=== PATIENT | female | born 1970 | race Caucasian/White ===

== ENCOUNTER → 2016-08-11 | Day surgery (SDC) | payer OTHER ==
[~2016-08-11] VITALS: Ht 160 cm; Wt 72.6 kg
[~2016-08-11] MED LIST: BUPIVACAINE HCL 0.25% 10 ML VIAL As Ordered ONE; BUPIVACAINE HCL 0.25% 30 ML VIAL XX ONE; GLYCOPYRROLATE INJ 0.2 MG/ML 2 ML VIAL As Ordered ONE; HYDROmorphone HCL 2 MG/ML 1ML VIAL (J1170) As Ordered ONE; IRON1TAB PO; KETOROLAC 30 MG/ML VIAL (J1885) IV SCH; KETOROLAC 60 MG/2 ML VIAL (J1885) As Ordered ONE; LEXA1TAB PO; LIDOCAINE 2% INJ 100 MG/5 ML SDV (FOR ANES.) As Ordered ONE; LOES1TAB10 PO; LR 1,000 ML IV SCH; MIDAZOLAM INJ 2 MG/2 ML VIAL (J2250) As Ordered ONE; MULT1TAB10 PO; NEOSTIGMINE 1MG/ML 5 ML SYRINGE (J2710) As Ordered ONE; ONDANSETRON 4MG/2ML VIAL (J2405) As Ordered ONE; ONDANSETRON 4MG/2ML VIAL (J2405) IV PRN; PERCOCET 5MG/325MG TAB As Ordered ONE; PERCOCET 5MG/325MG TAB PO PRN; PROPOFOL 200 MG/20 ML VIAL As Ordered ONE; ROCURONIUM BROMIDE 50 MG/5 ML VIAL As Ordered ONE; dexameTHASONE 4 MG/ML 1ML VIAL (J1100) As Ordered ONE; fentaNYL 100 MCG/2 ML INJECTION (J3010) As Ordered ONE
[2016-08-11 10:10] LABS: MEAN CORPUSCULAR HGB CONC 32.8 g/dl (32.0-36.5); MEAN CORPUSCULAR VOLUME 91.3 fl (80.0-96.0); RED CELL DISTRIBUTION WIDTH 12.7 % (11.5-14.5)
[2016-08-11 10:20] LABS: CONTROL LINE HCG INT CTR LINE PRESENT
[2016-08-11] MEDS: fentaNYL 100 MCG/2 ML INJECTION (J3010) IV PRN ×4 (12:07→12:50)
[2016-08-11] MEDS: PERCOCET 5MG/325MG TAB PO PRN ×2 (12:20→12:44)
--- NOTE | 2016-08-11 12:29 | RO ---
DATE OF PROCEDURE: 08/11/2016 PREOPERATIVE DIAGNOSIS: Satisfied parity with undesired fertility. POSTOPERATIVE DIAGNOSIS: Satisfied parity with undesired fertility. PROCEDURE: Laparoscopic bilateral tubal ligation using Filshie clips. SURGEON: Danae Sotelo MD DRAWING CHECKER: Sukh Kamara DO ANESTHESIA: General endotracheal anesthesia. ESTIMATED BLOOD LOSS: 5 mL. INTRAVENOUS FLUIDS: 1100 mL of lactated Ringer solution. URINE OUTPUT: 300 mL. PREOPERATIVE ANTIBIOTICS: None. OPERATIVE FINDINGS: Patient with normal appearing posterior, anterior cul-de-sacs, bilateral adnexa. DESCRIPTION OF OPERATION: After informed consent was obtained and written consent was reviewed, the patient was brought to the operating room where general endotracheal anesthesia was obtained. She was then placed in lithotomy position, was prepped and draped in normal sterile fashion. A time-out in the operating room was then performed, identifying the patient, procedure to be performed, as well as drug allergies. A bivalve speculum was then placed revealing the cervix. The anterior lip of the cervix was grasped with a single-tooth tenaculum. A Hulka tenaculum was then advanced through the cervical os for means to manipulate the uterus. A single-tooth tenaculum as well as speculum was removed. Rees catheter was then placed and set to gravity. Gloves were changed and attention was turned to patient's abdomen where a 0.25% Marcaine was infused in umbilical region. This area was incised and a 5 mm trocar and sleeve was advanced through this incision. Laparoscope was then replaced revealing intraabdominal placement. Pneumoperitoneum was then obtained with CO2 gas. A second incision was made 2 cm above the pubis symphysis in the midline. This area was infused with 0.25% Marcaine. An incision was made in this area. 8 mm trocar and sleeve was advanced through this incision under direct visualization. Next, the abdomen was surveyed with the above noted findings. Using the Filshie clip applicator, a Filshie clip was applied in the mid isthmus portion of the left fallopian tube with good blanching noted. The Filshie clip applicator was then reloaded. In a similar fashion, the right fallopian tube was followed out to the fimbriated end and in the mid isthmus portion of the fallopian tube a Filshie clip was applied with good blanching noted. Instruments were then removed from patient's abdomen. Pneumoperitoneum was then released. Trocars were removed. Incision was then closed with #4-0 Monocryl and was dressed with Dermabond. The Hulka tenaculum was then removed. The tenaculum sites were noted to be hemostatic. Rees catheter removed, and the patient was then taken out of lithotomy position, was awakened from general anesthesia and taken to recovery in stable condition. Counts were correct.
[2016-08-11 14:11] VITALS: BP 113/68
== END | disposition home or self-care (01) ==
LOC: M SDC 09:19
PROVIDERS: ATTEND Obstetrics & Gynecology
DX: Z30.2 Encounter for sterilization (principal); D64.9 Anemia, unspecified; Z79.899 Other long term (current) drug therapy
CPT/HCPCS: 58671; 84703; 85027; 86850; 86900; 86901; A4649; J1100; J1170; J1885; J2250; J2405; J2710; J3010